=== PATIENT | male | born 1940 | race Caucasian/White ===

== ENCOUNTER 2020-06-18 10:18 | Outpatient (REF) | payer MEDICARE, SELFPAY | END 2020-06-18 10:19 | disposition home or self-care (01) | LOC: HO.WFDLDS 10:18 | PROVIDERS: Visit Provider Internal Medicine | DX: Z20.822 Contact with and (suspected) exposure to COVID-19 (principal) | CPT/HCPCS: 36415; C9803; U0003 ==

== ENCOUNTER 2023-04-25 13:23 | Outpatient (AMB) | payer MEDICARE, SELFPAY ==
--- NOTE | 2023-04-25 13:38 | HO.NEPHOV_ITS ---
HPI HPI Comments History of Present Illness Details Elderly man with history of congestive heart failure and atrial fibrillation with CKD. Baseline creatinine has been around 1.2 mg After initiation of diuretics creatinine seen increased to 1.4 mg/dL and remains unchanged. He has current T on lasix 80 He is waiting for colonoscopy- which might happen in September of 2023. Blood pressure is well controlled and is not on amlodipine at this time. History of atrial fibrillation and is on anticoagulation He has stopped drinking scotch x 2 months Vital Signs 04/25/23 13:39 Height 5 ft 10 in Weight 218 lb BMI 31.3 BP 128/80 Blood Pressure Location Rt brachial Position Sitting Pulse 82 Pulse Source Pulse Oximeter Pulse Oximetry (%) 96 Oxygen Delivery Method Room Air Physical Exam Vital Signs: Last Vital Signs Pulse 82 04/25/23 13:39 BP 128/80 04/25/23 13:39 Pulse Ox 96 04/25/23 13:39 Oxygen Delivery Method Room Air 04/25/23 13:39 BMI result Body Mass Index 31.3 Const General: comfortable Nutritional Appearance: well nourished Orientation/consciousness: patient oriented x3 HEENT Head: No normal to inspection Mouth: moist mucous membranes Neck Neck: Yes supple and Yes no JVD Resp Auscultation: clear to auscultation bilaterally, no rales and rub present Cardio Jugular venous distension: no JVD Palpation: no palpable S3 and no palpable S4 Heart sounds: no rubs GI Palpation (GI): Soft to palpation and nontender Percussion: No Fluid wave present General: Yes no CVA tenderness Back/Spine/Pelvis Back: no CVA tenderness Skin General skin exam: no rashes or lesions noted Neuro General: patient oriented x3 Extrem General: Yes no pedal edema and No clubbing Results Reviewed Results Reviewed: This was reviewed. Serum creatinine 1.4. Cardiology note from [facility] was reviewed Assessment & Plan Assessment & Plan (1) CKD (chronic kidney disease): Code(s): N18.9 - Chronic kidney disease, unspecified Plan: Chronic kidney disease in the setting of longstanding hypertension congestive heart failure. There has been a mild bump in serum creatinine from 1.2 up to 1.4 and creatinine has been stable at 1.4 for last few months. This bump may be related to use of diuretics. At this point it is important to keep him euvolemic. Continue with current dose of diuretics. Monitored weights at home. Continue to stay on low-sodium diet. Avoid nephrotoxic agents including NSAIDs. Coding Level of Care Code New Pt Level 3 (29984) Diagnoses CKD (chronic kidney disease) N18.9
[2023-04-25 13:39] VITALS: BP 128/80; PULSE 82; O2SAT 96; BMI 31.3
== END 2023-04-25 13:59 | disposition home or self-care (01) ==
PROVIDERS: PCP Family Medicine; Visit Provider Internal Medicine Hypertension Specialist
DX: I13.0 Hypertensive heart and chronic kidney disease with heart failure and stage 1 through stage 4 chronic kidney disease, or unspecified chronic kidney disease (principal); I50.22 Chronic systolic (congestive) heart failure; N18.30 Chronic kidney disease, stage 3 unspecified; I48.91 Unspecified atrial fibrillation; Z79.01 Long term (current) use of anticoagulants
CPT/HCPCS: 99203; 99213

== ENCOUNTER → 2023-04-25 13:23 | Outpatient (BNVA) | payer MEDICARE, SELFPAY | PROVIDERS: PCP Family Medicine; Visit Provider Internal Medicine Hypertension Specialist | DX: I13.0 Hypertensive heart and chronic kidney disease with heart failure and stage 1 through stage 4 chronic kidney disease, or unspecified chronic kidney disease (principal); I50.9 Heart failure, unspecified; N18.9 Chronic kidney disease, unspecified; I48.91 Unspecified atrial fibrillation; Z79.01 Long term (current) use of anticoagulants; Z79.899 Other long term (current) drug therapy | CPT/HCPCS: 99202 ==

== ENCOUNTER 2023-08-15 11:18 | Outpatient (AMB) | payer MEDICARE, SELFPAY ==
[2023-08-15 11:21] VITALS: BP 118/64; PULSE 86; O2SAT 95; BMI 32.0
--- NOTE | 2023-08-15 11:21 | HO.NEPHOV ---
HPI HPI Comments History of Present Illness Details Elderly man with history of congestive heart failure and atrial fibrillation with CKD. Baseline creatinine has been around 1.2 mg After initiation of diuretics creatinine seen increased to 1.4 mg/dL and remains unchanged. He has current on lasix 80 He is waiting for colonoscopy- which might happen in September of 2023. Blood pressure is well controlled and is not on amlodipine at this time. History of atrial fibrillation and is on anticoagulation He has stopped drinking scotch x few months 08/15/23 Still has dyspnea on exertion No chest pain Still has edema [facility] Social History (Updated 08/15/23 @ 11:23 by Kaleigh Gagnon) Alcohol intake: current Comment: occ Patient Tobacco Use Status: Never used Tobacco Vital Signs 08/15/23 11:21 Height 5 ft 10 in Weight 223 lb BMI 32.0 BP 118/64 Blood Pressure Location Lt brachial Position Sitting Pulse 86 Pulse Source Pulse Oximeter Pulse Oximetry (%) 95 Oxygen Delivery Method Room Air Physical Exam Vital Signs: Last Vital Signs Pulse 86 08/15/23 11:21 BP 118/64 08/15/23 11:21 Pulse Ox 95 08/15/23 11:21 Oxygen Delivery Method Room Air 08/15/23 11:21 BMI result Body Mass Index 32.0 Const General: comfortable Nutritional Appearance: well nourished Orientation/consciousness: patient oriented x3 HEENT Head: No normal to inspection Mouth: moist mucous membranes Neck Neck: Yes supple and Yes no JVD Resp Auscultation: clear to auscultation bilaterally, no rales and rub present Cardio Jugular venous distension: no JVD Palpation: no palpable S3 and no palpable S4 Heart sounds: no rubs GI Palpation (GI): Soft to palpation and nontender Percussion: No Fluid wave present General: Yes no CVA tenderness Back/Spine/Pelvis Back: no CVA tenderness Skin General skin exam: no rashes or lesions noted Neuro General: patient oriented x3 Extrem General: Yes no pedal edema and No clubbing Assessment & Plan Assessment & Plan (1) CKD (chronic kidney disease): Code(s): N18.9 - Chronic kidney disease, unspecified Plan: Chronic kidney disease in the setting of longstanding hypertension congestive heart failure. There has been a mild bump in serum creatinine to 1.6 This bump may be related to use of diuretics. At this point it is important to keep him euvolemic. Continue with current dose of diuretics. Monitored weights at home. Continue to stay on low-sodium diet. Avoid nephrotoxic agents including NSAIDs. Orders: Orders Basic Metabolic Panel 3 Months N18.9 - Chronic kidney disease, unspecified Complete Blood Count Auto Diff 3 Months N18.30 - Chronic kidney disease, stage 3 unspecified, N18.9 - Chronic kidney disease, unspecified Myeloperoxidase Antibody 3 Months N18.9 - Chronic kidney disease, unspecified Neutrophil Cytoplasma Ab 3 Months N18.9 - Chronic kidney disease, unspecified Complement C4 3 Months N18.9 - Chronic kidney disease, unspecified Complement C3 3 Months N18.9 - Chronic kidney disease, unspecified Proteinase 3 PR3 Antibodies 3 Months N18.9 - Chronic kidney disease, unspecified Anti Glomerular Basement Memb 3 Months N18.9 - Chronic kidney disease, unspecified Protein Electrophoresis, Serum 3 Months N18.9 - Chronic kidney disease, unspecified Coding Level of Care Code Est Pt Level 4 (07170) Diagnoses CKD (chronic kidney disease) N18.9 Results Reviewed Results Reviewed: Cr 1.6 Electrolytes are ok Nephrology Results: No Data to Display
== END 2023-08-15 11:52 | disposition home or self-care (01) ==
PROVIDERS: PCP Family Medicine; Visit Provider Internal Medicine Hypertension Specialist
DX: N18.9 Chronic kidney disease, unspecified (principal)
CPT/HCPCS: 99214

== ENCOUNTER → 2023-08-15 11:18 | Outpatient (BNVA) | payer MEDICARE, SELFPAY | PROVIDERS: PCP Family Medicine; Visit Provider Internal Medicine Hypertension Specialist | DX: I13.0 Hypertensive heart and chronic kidney disease with heart failure and stage 1 through stage 4 chronic kidney disease, or unspecified chronic kidney disease (principal); N18.9 Chronic kidney disease, unspecified; I50.9 Heart failure, unspecified | CPT/HCPCS: 99212 ==

== ENCOUNTER 2023-12-12 10:54 | Outpatient (AMB) | payer MEDICARE, SELFPAY ==
--- NOTE | 2023-12-12 10:55 | HO.NEPHOV ---
Vital Signs 12/12/23 10:56 Height 5 ft 10 in Weight 219 lb BMI 31.4 BP 120/72 Blood Pressure Location Lt brachial Position Sitting Pulse 85 Pulse Source Pulse Oximeter Pulse Oximetry (%) 96 Oxygen Delivery Method Room Air Intake Visit Reasons: 4 mon follow up/ Conf Facilities Clerk Required: No Accompanied by: Self / Same As Patient Allergies lactose intolerant Allergy (Uncoded 04/25/23 13:38) Diarrhea Medication List - Last Reconciled 12/12/23 by Vinny Kenney MD acetaminophen (Tylenol Extra Strength) 500 mg PO Q6H PRN atorvastatin 80 mg PO DAILY cholecalciferol (vitamin D3) 125 mcg PO DAILY clopidogrel 75 mg PO DAILY doxylamine succinate 25 mg PO BEDTIME PRN finasteride 5 mg PO DAILY furosemide 40 mg PO BID lorazepam 0.5 mg PO BEDTIME PRN melatonin 5 mg PO PRN metoprolol succinate ER 50 mg PO DAILY omeprazole 40 mg PO DAILY potassium gluconate 595 mg PO DAILY rivaroxaban (Xarelto) 15 mg PO DAILY HPI Comments Details: Elderly man with history of congestive heart failure and atrial fibrillation with CKD. Baseline creatinine has been around 1.2 mg After initiation of diuretics creatinine seen increased to 1.4 mg/dL and remains unchanged. He has current on lasix 80 He is waiting for colonoscopy- which might happen in September of 2023. Blood pressure is well controlled and is not on amlodipine at this time. History of atrial fibrillation and is on anticoagulation He has stopped drinking scotch x few months 08/15/23 Still has dyspnea on exertion No chest pain Still has edema 12/12/23 PFSH Social History Alcohol intake: current Comment: [facility] Patient Tobacco Use Status: Never used Tobacco Physical Exam Vital Signs: Last Vital Signs Pulse 85 12/12/23 10:56 BP 120/72 12/12/23 10:56 Pulse Ox 96 12/12/23 10:56 Oxygen Delivery Method Room Air 12/12/23 10:56 BMI result Body Mass Index 31.4 Const General: comfortable; No acute distress Orientation/consciousness: patient oriented x3 Eyes General: appearance normal, both eyes and all related structures Visual Amezcua: normal visual amezcua by confrontation Neck Neck: Yes supple and Yes no JVD Resp Effort & Inspection: normal respiratory effort and respiratory effort not decreased Auscultation: rhonchi Cardio Palpation: no palpable S3 and no palpable S4 Heart sounds: no rubs GI Inspection: Yes normal to inspection Palpation (GI): Soft to palpation Percussion: Yes normal to percussion Auscultation: normal bowel sounds General: Yes no CVA tenderness Back/Spine/Pelvis Back: no CVA tenderness Skin General skin exam: no petechiae and no purpura Neuro General: patient oriented x3 and no focal motor deficits Extrem General: No clubbing and Yes edema (Trace) Results Reviewed Results Reviewed: eGFR 39 ml/mt Nephrology Results: No Data to Display Assessment & Plan Assessment & Plan (1) CKD (chronic kidney disease): Code(s): N18.9 - Chronic kidney disease, unspecified Category: Medical Plan: Chronic kidney disease in the setting of longstanding hypertension congestive heart failure. There has been a mild bump in serum creatinine to 1.6 This bump may be related to use of diuretics. At this point it is important to keep him euvolemic. Decrease LASIX to 40 mg Q AM and decrease evening dose to QOD for 2 weeks and reassess Repeat Chem 7 in a week Monitored weights at home. Continue to stay on low-sodium diet. Avoid nephrotoxic agents including NSAIDs. Coding Level of Care Code Est Pt Level 3 (12510) Diagnoses CKD (chronic kidney disease) N18.9
[2023-12-12 10:56] VITALS: BP 120/72; PULSE 85; O2SAT 96; BMI 31.4
== END 2023-12-12 11:18 | disposition home or self-care (01) ==
PROVIDERS: PCP Family Medicine; Visit Provider Internal Medicine Hypertension Specialist
DX: N18.9 Chronic kidney disease, unspecified (principal)
CPT/HCPCS: 99213

== ENCOUNTER → 2023-12-12 10:54 | Outpatient (BNVA) | payer MEDICARE, SELFPAY | PROVIDERS: PCP Family Medicine; Visit Provider Internal Medicine Hypertension Specialist | DX: I13.0 Hypertensive heart and chronic kidney disease with heart failure and stage 1 through stage 4 chronic kidney disease, or unspecified chronic kidney disease (principal); N18.9 Chronic kidney disease, unspecified; I50.9 Heart failure, unspecified | CPT/HCPCS: 99212 ==

== ENCOUNTER 2024-01-23 09:09 | Outpatient (AMB) | payer MEDICARE, SELFPAY ==
[2024-01-23 09:13] VITALS: BP 110/64; PULSE 61; O2SAT 97; BMI 33.0
--- NOTE | 2024-01-23 09:13 | HO.NEPHOV ---
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 Accompanied by: Self / Same As Patient Allergies lactose intolerant Allergy (Uncoded 04/25/23 13:38) Diarrhea Medication List - Last Reconciled 01/23/24 by Vinny Kenney MD acetaminophen (Tylenol Extra Strength) 500 mg PO Q6H PRN atorvastatin 80 mg PO DAILY cholecalciferol (vitamin D3) 125 mcg PO DAILY clopidogrel 75 mg PO DAILY doxylamine succinate 25 mg PO BEDTIME PRN finasteride 5 mg PO DAILY furosemide 40 mg PO BID lorazepam 0.5 mg PO BEDTIME PRN melatonin 5 mg PO PRN metoprolol succinate ER 50 mg PO DAILY omeprazole 40 mg PO DAILY potassium gluconate 595 mg PO DAILY rivaroxaban (Xarelto) 15 mg PO DAILY HPI Comments Details: Elderly man with history of congestive heart failure and atrial fibrillation with CKD. Baseline creatinine has been around 1.2 mg After initiation of diuretics creatinine seen increased to 1.4 mg/dL and remains unchanged. He has current on lasix 80 He is waiting for colonoscopy- which might happen in September of 2023. Blood pressure is well controlled and is not on amlodipine at this time. History of atrial fibrillation and is on anticoagulation He has stopped drinking scotch x few months 08/15/23 Still has dyspnea on exertion No chest pain Still has edema 01/23/24 NO change in Cr after lowering LAsix Weight is up Says he eats more than usual since is is sick No change in reps status [facility] Social History Alcohol intake: current Comment: occ Patient Tobacco Use Status: Never used Tobacco Physical Exam Vital Signs: Last Vital Signs Pulse 61 01/23/24 09:13 BP 110/64 01/23/24 09:13 Pulse Ox 97 01/23/24 09:13 Oxygen Delivery Method Room Air 01/23/24 09:13 BMI result Body Mass Index 33.0 Const General: comfortable; No acute distress Orientation/consciousness: patient oriented x3 Eyes General: appearance normal, both eyes and all related structures Visual Amezcua: normal visual amezcua by confrontation Neck Neck: Yes supple and Yes no JVD Resp Effort & Inspection: normal respiratory effort and respiratory effort not decreased Auscultation: rhonchi Cardio Palpation: no palpable S3 and no palpable S4 Heart sounds: no rubs GI Inspection: Yes normal to inspection Palpation (GI): Soft to palpation Percussion: Yes normal to percussion Auscultation: normal bowel sounds General: Yes no CVA tenderness Back/Spine/Pelvis Back: no CVA tenderness Skin General skin exam: no petechiae and no purpura Neuro General: patient oriented x3 and no focal motor deficits Extrem General: No clubbing and Yes edema (Trace) Results Reviewed Results Reviewed: Cr 1.75v on 01/17/24 Nephrology Results: No Data to Display Assessment & Plan Assessment & Plan (1) CKD (chronic kidney disease): Code(s): N18.9 - Chronic kidney disease, unspecified Category: Medical Plan: Chronic kidney disease in the setting of longstanding hypertension congestive heart failure. There has been a mild bump in serum creatinine to 1.6 This bump may be related to use of diuretics. At this point it is important to keep him euvolemic. Needs to complete serological work up Resume LASIX 40 mg BID Monitored weights at home. Continue to stay on low-sodium diet. Avoid nephrotoxic agents including NSAIDs. Hematuria Follow s with Urology CT scan unremarkable Had CT with IV contrast Check Creatinine post contrast Coding Level of Care Code Est Pt Level 3 (84916) Diagnoses CKD (chronic kidney disease) N18.9
== END 2024-01-23 09:43 | disposition home or self-care (01) ==
PROVIDERS: PCP Family Medicine; Visit Provider Internal Medicine Hypertension Specialist
DX: N18.9 Chronic kidney disease, unspecified (principal)
CPT/HCPCS: 99213

== ENCOUNTER → 2024-01-23 09:09 | Outpatient (BNVA) | payer MEDICARE, SELFPAY | PROVIDERS: PCP Family Medicine; Visit Provider Internal Medicine Hypertension Specialist | DX: N18.9 Chronic kidney disease, unspecified (principal) ==

== ENCOUNTER 2024-04-23 10:12 | Outpatient (AMB) | payer MEDICARE, SELFPAY ==
[2024-04-23 10:18] VITALS: BP 120/76; PULSE 89; O2SAT 96; BMI 32.3
--- NOTE | 2024-04-23 10:18 | HO.NEPHOV_ITS ---
Vital Signs 04/23/24 10:18 Height 5 ft 10 in Weight 225 lb BMI 32.3 BP 120/76 Blood Pressure Location Lt brachial Position Sitting Pulse 89 Pulse Source Pulse Oximeter Pulse Oximetry (%) 96 Oxygen Delivery Method Room Air Intake Visit Reasons: 3 mon follow up/ Conf Desktop Support Manager Required: No Accompanied by: Self / Same As Patient Allergies lactose intolerant Allergy (Uncoded 04/25/23 13:38) Diarrhea Medication List - Last Reconciled 04/23/24 by Vinny Kenney MD acetaminophen (Tylenol Extra Strength) 500 mg PO Q6H PRN atorvastatin 80 mg PO DAILY cholecalciferol (vitamin D3) 125 mcg PO DAILY clopidogrel 75 mg PO DAILY doxylamine succinate 25 mg PO BEDTIME PRN finasteride 5 mg PO DAILY furosemide 40 mg PO BID lorazepam 0.5 mg PO BEDTIME PRN melatonin 5 mg PO PRN metoprolol succinate ER 50 mg PO DAILY omeprazole 40 mg PO DAILY potassium gluconate 595 mg PO DAILY rivaroxaban (Xarelto) 15 mg PO DAILY HPI Comments Details: Elderly man with history of congestive heart failure and atrial fibrillation with CKD. Baseline creatinine has been around 1.2 mg After initiation of diuretics creatinine seen increased to 1.4 mg/dL and remains unchanged. He has current on lasix 80 He is waiting for colonoscopy- which might happen in September of 2023. Blood pressure is well controlled and is not on amlodipine at this time. History of atrial fibrillation and is on anticoagulation He has stopped drinking scotch x few months 08/15/23 Still has dyspnea on exertion No chest pain Still has edema 01/23/24 No change in Cr after lowering Lasix Weight is up Says he eats more than usual since is is sick No change in reps status 04/23/24 c/o DRy cough NO dypnea PFSH Social History Alcohol intake: current Comment: occ Patient Tobacco Use Status: Never used Tobacco Physical Exam Vital Signs: Last Vital Signs Pulse 89 04/23/24 10:18 BP 120/76 04/23/24 10:18 Pulse Ox 96 04/23/24 10:18 Oxygen Delivery Method Room Air 04/23/24 10:18 BMI result Body Mass Index 32.3 Results Reviewed Results Reviewed: Cr 1.75 as of Apr 03, 2024 Nephrology Results: No Data to Display Assessment & Plan Assessment & Plan (1) CKD (chronic kidney disease): Code(s): N18.9 - Chronic kidney disease, unspecified Category: Medical Plan: Chronic kidney disease in the setting of longstanding hypertension congestive heart failure. There has been a mild bump in serum creatinine to 1.6 and currently at 1.75 This bump may be related to use of diuretics. At this point it is important to keep him euvolemic. Serologies reordered Keep LASIX 40 mg BID Added Farxiga 5 mg daily ( 04/23/24) Monitored weights at home. Continue to stay on low-sodium diet. Avoid nephrotoxic agents including NSAIDs. Hematuria Follow with Urology CT scan unremarkable Orders: Orders Basic Metabolic Panel Today N18.9 - Chronic kidney disease, unspecified Basic Metabolic Panel 1 Month N18.9 - Chronic kidney disease, unspecified Proteinase 3 PR3 Antibodies 1 Month N18.9 - Chronic kidney disease, unspecified Anti Glomerular Basement Memb 1 Month N18.9 - Chronic kidney disease, unspecif ied Neutrophil Cytoplasma Ab 1 Month N18.9 - Chronic kidney disease, unspecified Myeloperoxidase Antibody 1 Month N18.9 - Chronic kidney disease, unspecified Complement C3 1 Month N18.9 - Chronic kidney disease, unspecified Complement C4 1 Month N18.9 - Chronic kidney disease, unspecified Medications: New dapagliflozin propanediol (Farxiga) 5 mg PO DAILY 90 tabs 0RF Coding Level of Care Code Est Pt Level 4 (96280) Diagnoses CKD (chronic kidney disease) N18.9
== END 2024-04-23 10:40 | disposition home or self-care (01) ==
PROVIDERS: PCP Family Medicine; Visit Provider Internal Medicine Hypertension Specialist
DX: N18.9 Chronic kidney disease, unspecified (principal)
CPT/HCPCS: 99214

== ENCOUNTER 2024-07-30 10:22 | Outpatient (AMB) | payer MEDICARE, SELFPAY ==
[2024-07-30 10:24] VITALS: BP 104/60; PULSE 76; O2SAT 95; BMI 32.6
--- NOTE | 2024-07-30 10:24 | HO.NEPHOV_ITS ---
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 Accompanied by: Self / Same As Patient Allergies lactose intolerant Allergy (Uncoded 04/25/23 13:38) Diarrhea Medication List - Last Reconciled 07/30/24 by Vinny Kenney MD acetaminophen (Tylenol Extra Strength) 500 mg PO Q6H PRN atorvastatin 80 mg PO DAILY cholecalciferol (vitamin D3) 125 mcg PO DAILY clopidogrel 75 mg PO DAILY dapagliflozin propanediol (Farxiga) 5 mg PO DAILY doxylamine succinate 25 mg PO BEDTIME PRN finasteride 5 mg PO DAILY furosemide 40 mg PO BID lorazepam 0.5 mg PO BEDTIME PRN melatonin 5 mg PO PRN metoprolol succinate ER 50 mg PO DAILY omeprazole 40 mg PO DAILY potassium gluconate 595 mg PO DAILY rivaroxaban (Xarelto) 15 mg PO DAILY HPI Comments Details: Elderly man with history of congestive heart failure and atrial fibrillation with CKD. Baseline creatinine has been around 1.2 mg After initiation of diuretics creatinine seen increased to 1.4 mg/dL and remains unchanged. He has current on lasix 80 He is waiting for colonoscopy- which might happen in September of 2023. Blood pressure is well controlled and is not on amlodipine at this time. History of atrial fibrillation and is on anticoagulation He has stopped drinking scotch x few months 08/15/23;Still has dyspnea on exertion; No chest pain ;Still has edema 01/23/24 ; No change in Cr after lowering Lasix;Weight is up; Says he eats more than usual since is is sick; No change in reps status 04/23/24 ;c/o DRy cough; NO dypnea 07/30/24 s/p Ablation in Jun 2024 Lasted 2 weeks Reverted back after he took some scotch After starting Farxiga, he lost about 7 lbs No change in resp status Edema unchanged Cough has resolved PFSH Surgical History (Updated 07/30/24 @ 10:31 by ELIDA Dave) Status post catheter ablation of slow pathway (~06/2024) Social History Alcohol intake: current Comment: occ Patient Tobacco Use Status: Never used Tobacco Physical Exam Vital Signs: Last Vital Signs Pulse 76 07/30/24 10:24 BP 104/60 07/30/24 10:24 Pulse Ox 95 07/30/24 10:24 Oxygen Delivery Method Room Air 07/30/24 10:24 BMI result Body Mass Index 32.6 Const General: comfortable; No acute distress Orientation/consciousness: patient oriented x3 Eyes General: appearance normal, both eyes and all related structures Visual Amezcua: normal visual amezcua by confrontation Neck Neck: Yes supple and Yes no JVD Resp Effort & Inspection: normal respiratory effort and respiratory effort not decreased Auscultation: rhonchi Cardio Palpation: no palpable S3 and no palpable S4 Heart sounds: no rubs GI Inspection: Yes normal to inspection Palpation (GI): Soft to palpation Percussion: Yes normal to percussion Auscultation: normal bowel sounds General: Yes no CVA tenderness Back/Spine/Pelvis Back: no CVA tenderness Skin General skin exam: no petechiae and no purpura Neuro General: patient oriented x3 and no focal motor deficits Extrem General: No clubbing and Yes edema (Trace) Results Reviewed Results Reviewed: Cr 1.75 as of Mar : 2.06 Jul 2024 : 2.03 Nephrology Results: No Data to Display Assessment & Plan Assessment & Plan (1) CKD (chronic kidney disease): Code(s): N18.9 - Chronic kidney disease, unspecified Category: Medical Plan: Chronic kidney disease in the setting of longstanding hypertension congestive heart failure. bump in serum creatinine to 1.6 and currently at 1.75 Cr up to 2.03 Natural progression vs hypoperfusion in a setting of A.fib This bump may be related to use of diuretics. At this point it is important to keep him euvolemic. Serologies reordered Change LASIX 40 mg QAM and use Lasix 40 mg POevery other evening Added Farxiga 5 mg daily ( 04/23/24) Monitored weights at home. Continue to stay on low-sodium diet. Avoid nephrotoxic agents including NSAIDs. Hematuria Follow with Urology CT scan unremarkable Orders: Orders Basic Metabolic Panel 3 Months N18.9 - Chronic kidney disease, unspecified Complete Blood Count no Diff 3 Months N18.9 - Chronic kidney disease, unspecified Medications: Refilled dapagliflozin propanediol (Farxiga) 5 mg PO DAILY 90 tabs 3RF dapagliflozin propanediol (Farxiga) 5 mg PO DAILY 90 tabs 3RF Coding Level of Care Code Est Pt Level 4 (01221) Diagnoses CKD (chronic kidney disease) N18.9
--- OUTSIDE RECORDS SUMMARY | 2024-07-30 12:40 | XMS_ITS | Clinical Summary ---
Author Organization [facility] Address [address] [place] [address] Care Team Providers Care Property Insurance Inspector Name Role Phone Sonido Meadows MD Primary Care Provider [phone] Allergies No known active allergies Medications Medication Sig Dispensed Refills Start Date End Date Status amLODIPine (NORVASC) tablet 5 mg Take 5 mg by mouth daily. 0 11/01/2018 Active amoxicillin (AMOXIL) 500 MG capsule Take 500 mg by mouth 3 (three) times a day. 0 12/10/2018 Active finasteride (PROSCAR) 5 MG tablet Take 5 mg by mouth daily. 0 11/15/2018 Active hydroCHLOROthiazide (HYDRODIURIL) tablet 25 mg Take 25 mg by mouth daily. 0 11/01/2018 Active metoprolol succinate (TOPROL-XL) 24 hr tablet 50 mg Take 50 mg by mouth daily. 0 11/01/2018 Active XARELTO 20 MG TABS tablet 20 mg every evening. 0 11/15/2018 Active ipratropium (ATROVENT) 0.03 % nasal spray USE 2 SPRAY(S) IN EACH NOSTRIL THREE TIMES DAILY DIRECTED 11 01/27/2019 Active DOXYLAMINE SUCCINATE TANNATE PO Take 25 mg by mouth every night at bedtime as needed. 0 Active cholecalciferol (VITAMIN D3) 1000 units tablet Take 1,000 Units by mouth daily. 0 Active Potassium Gluconate 595 MG CAPS Take 1 tablet by mouth as needed. 0 Active lovastatin (MEVACOR) 40 MG tablet Take 40 mg by mouth every night at bedtime. 0 Active Melatonin 5 MG TABS Take 1 tablet by mouth every night at bedtime. 0 Active omeprazole (PriLOSEC) 40 MG capsule Take 40 mg by mouth daily. 0 Active Social History Tobacco Use Types Packs/Day Years Used Date Smoking Tobacco: Never Smokeless Tobacco: Never Alcohol Use Standard Drinks/Week Comments Yes 0 (1 standard drink = 0.6 oz pur e alcohol) Sunday night Sex and Gender Information Value Date Recorded Sex Assigned at Male 07/04/2018 8:51 AM EST Gender Identity Not on file Sexual Orientation Not on file Last Filed Vital Signs Vital Sign Reading Time Taken Comments Blood Pressure 116/72 02/12/2019 1:30 PM EDT Pulse 58 02/12/2019 1:30 PM EDT Temperature 36.9 ??C (98.5 ??F) 02/12/2019 12:50 PM E DT Respiratory Rate 15 02/12/2019 1:30 PM EDT Oxygen Saturation 95% 02/12/2019 1:30 PM EDT Inhaled Oxygen Concentration - - Weight 98.4 kg (217 lb) 02/12/2019 10:09 AM EDT Height 177.8 cm (5' 10 ) 02/12/2019 10:09 AM EDT Body Mass Index 31.14 02/12/2019 10:09 AM EDT Plan of Treatment Health Maintenance Due Date Last Done Comments COVID-19 Vaccine (#1) 1940 Depression Screening 1952 BMI Counseling 1958 Preventative Health Evaluation 1958 DTap / Tdap / Td (1 - Tdap) 1959 Shingrix-Zoster Vaccine (1 of 2) 1990 Fall Risk Assessment 2005 Pneumococcal Vaccine (1 of 1 - PCV) 2005 RSV Adult > 60+ Yrs or Pregn ant (1 - 1-dose 75+ series) 2015 Influenza Vaccine (#1) 2024 Hepatitis B Vaccines Aged Out No long er eligible based on patient's age to complete this topic RSV Ped < 20 months Aged Out No longe r eligible based on patient's age to complete this topic Advance Directives For more information, please contact: [phone] Documents on File Type Date Recorded Patient Industrial Accountant Expl anation Advance Directive and Living Will 02/06/2019 4:12 PM POA WITH Care Teams Property Insurance Inspector Relationship Specialty Start Date End Date Sonido Meadows MD PCP - General Family Medicine 08/27/14
--- OUTSIDE RECORDS SUMMARY | 2024-07-30 12:40 | XMS_ITS | Clinical Summary ---
Author Organization [facility] Address [address] [place] [address] Phone Care Team Providers Care Cuprous Chloride Helper Name Role Phone Sonido Meadows DO Primary Care Provider [phone] Allergies No known active allergies Medications DOXYLAMINE SUCCINATE TANNATE PO Take 25 mg by mouth 1 (one) time each day Active cholecalciferol (VITAMIN D-3 SUPER STRENGTH) 50 MCG (2000 UT) tablet Take 1,000 Units by mouth 1 (one) time each day Active finasteride (PROSCAR) 5 MG tablet Take 1 tablet by mouth 1 (one) time each day Active Melatonin 5 MG tablet Take 1 tablet by mouth 1 (one) time each day Active metoprolol succinate XL (TOPROL XL) 50 MG 24 hr tablet Take 50 mg by mouth 1 (one) time each day 9 Active omeprazole (PriLOSEC) [address] capsule Take 40 mg by mouth 1 (one) time each day Active Potassium Gluconate 595 MG capsule Take 1 tablet by mouth if needed Active psyllium (METAMUCIL) 0.52 g capsule Take 1 capsule by mouth 2 (two) times a day Active rivaroxaban (XARELTO) 15 MG tablet Take 15 mg by mouth 1 (one) time each day 9 Active fluorouracil (EFUDEX) 5 % cream APPLY TOPICALLY TO SUNDAMAGED AREAS ONE DAY PER WEEK ON SUNDAYS IN THE AM AND IN THE PM FOR 3 MONTHS 1 Active LORazepam (ATIVAN) 0.5 MG tablet Take 0.5 mg by mouth every 6 (six) hours if needed for anxiety Active amLODIPine (NORVASC) 5 MG tablet Take 5 mg by mouth 1 (one) time each day 1 Active furosemide (LASIX) 20 MG tablet Take 1 tablet (20 mg total) by mouth every other day 30 tablet 2 Active Additional Information Patient taking differently: 40 mgOral2 times daily, Reported on 02/28/2023 lactase (LACTAID) 3000 units tablet Take 9,000 Units by mouth if needed Active acetaminophen (TYLENOL) 325 MG tablet Take by mouth every 6 (six) hours if needed for mild pain Active atorvastatin (LIPITOR) 80 MG tablet Take 80 mg by mouth 1 (one) time each day Active clopidogrel (PLAVIX) 75 MG tablet Take 75 mg by mouth 1 (one) time each day Active Imiquimod 2.5 % cream Apply 1 packet topically 3 (three) times a week Wash hands prior to and following application. Active Active Problems Problem Noted Date Diagnosed Date Rib pain 02/28/2023 02/28/2023 Polyp of colon 02/28/2023 02/28/2023 Peripheral edema 02/28/2023 02/28/2023 Malignant tumor of urinary system 02/28/2023 02/28/2023 Long-term current use of anticoagulant 02/28/2023 Patient encounter status 09/07/2021 Impaired fasting glycemia 09/07/2021 History of malignant basal cell neoplasm of skin 09/07/2021 Deep venous thrombosis of lower extremity 2021 Overview (09/07/2021): [id number]-[id number]-Fd. Johnson-hematology Atrial fibrillation 09/07/2021 Overview (09/07/2021): 2017 next 5 years Obese class I 09/07/2021 Chronic kidney disease 12/17/2020 Essential hypertension 12/17/2020 Resolved Problems Problem Noted Date Diagnosed Date Resolved Date Epistaxis 12/17/2020 02/24/2021 Basal cell carcinoma of skin 12/17/2020 02/24/2021 Cognitive disorder 12/17/2020 Disorder of cardiovascular system 12/17/2020 02/24/2021 Gastroesophageal reflux disease 12/17/2020 02/24/2021 History of thromboembolism of vein 12/17/2020 02/24/2021 Hyperlipidemia 12/17/2020 02/24/2021 Obstructive sleep apnea syndrome 12/17/2020 02/24/2021 Hyperplasia of prostate 12/17/2020 09/2 08/2020 Tinnitus 12/17/2020 02/24/2021 Immunizations Name Administration Dates Next Due Influenza Whole 03/17/2020 Influenza, Unspecified 04/12/2021 Pfizer SARS-COV-2 02/28/2021,08/01/2020,07/13/19 21 Social History Tobacco Use Types Packs/Day Years Used Date Smoking Tobacco: Never Smokeless Tobacco: Never Tobacco Cessation:Counseling Given: Not Answered Alcohol Use Standard Drinks/Week Comments Yes 0 (1 standard drink = 0.6 oz pure alcohol) Alcoholic Drinks/day: Occasional social drink Sex and Gender Information Value Date Recorded Sex Assigned at Not on file Legal Sex Male 5:14 PM EST Gender Identity Not on file Sexual Orientation Not on file Last Filed Vital Signs Vital Sign Reading Time Taken Comments Blood Pressure 110/76 02/28/2023 4:10 PM EDT Pulse 80 02/28/2023 4:10 PM EDT Temperature - - Respiratory Rate - - Oxygen Saturation 95% 02/28/2023 4:10 PM EDT Inhaled Oxygen Concentration - - Weight 100 kg (220 lb 12.8 oz) 02/28/2023 4:10 P M EDT Height 177.8 cm (5' 10 ) 02/28/2023 4:10 PM EDT Body Mass Index 31.68 02/28/2023 4:10 PM EDT Plan of Treatment Health Maintenance Due Date Last Done Comments Pneumococcal Vaccine: 65+ Years (1 of 2 - PCV) 1946 Influenza Vaccine (#1) 2024 , 03/17/2020 Hepatitis B Vaccine Aged Out No longe r eligible based on patient's age to complete this topic Insurance * Guarantor: Bret Ronquillo Account Type Relation to Patient Date of Phone Billing Address Personal/Family Self 1940 [address] [place] [address] [facility] Member Subscriber Plan / Payer (Ef fective 2020-Present) Name:Bret Ronquillo Relation to Subscriber:Self Name:Bret Ronquillo Payer ID:[id number] (NAIC) Group ID:Not on file Type:Not on file Address: [address] [place] [id number] MEDICARE [facility] MEDICARE Care Teams Cuprous Chloride Helper Relationship Specialty Start Date End Date Sonido Meadows DO [address] [place] [address] PCP - General Family Medicine 09/07/21
--- OUTSIDE RECORDS SUMMARY | 2024-07-30 12:40 | XMS_ITS | Clinical Summary ---
Author Organization [facility] it Address [address] [place] [address] Care Team Providers Care Front Office Medical Assistant Name Role Phone Sonido Meadows DO Primary Care Provider [phone] Surgical History Surgery Date Site/Laterality Comments TOTAL HIP ARTHROPLASTY Bilateral PROCEDURE:TOTAL HIP ARTHROPLASTY CHOLECYSTECTOMY PROCEDURE:CHOLECYSTECTOMY KNEE SURGERY PROCEDURE:KNEE SURGERY COLECTOMY PROCEDURE:COLECTOMY ARTHROPLASTY 02/12/2019 Right PROCEDURE:ARTHROPLASTY;COMMENT:Proce dure: ARTHROPLASTY INTERCARPAL JOINTS; Surgeon: Ranulfo Cordoba MD; Location: [facility]; Service: Orthopedics; Laterality: Right; TENDON TRANSFER 02/12/2019 Right PROCEDURE:TRANSFER TENDON HAND;COMMENT:Procedure: TRANSFER TENDON HAND; Surgeon: Ranulfo Cordoba MD; Location: [facility]; Service: Orthopedics; Laterality: Right; TRIGGER FINGER RELEASE 02/12/2019 Right PROCEDURE:TRIGGER FINGER RELEASE;COMMENT:Procedure: RELEASE TENDON SHEATH HAND; Surgeon: Ranulfo Cordoba MD; Location: [facility]; Service: Orthopedics; Laterality: Right; Medical History Medical History Date Comments HTN (hypertension) DX:HTN (hyper tension) Atrial fibrillation (CMS/HCC) DX :Atrial fibrillation (HCC) DVT, lower extremity (CMS/HCC) D X:DVT, lower extremity (HCC);COMMENT:left BPH (benign prostatic hyperplasia) DX:BPH (benign prostatic hyperplasia) Chronic kidney disease (CKD) , stage III (moderate) (CMS/HCC) DX:Chronic kidney disease (C KD), stage III (moderate) (HCC) Basal cell carcinoma DX:Basal ce ll carcinoma HLD (hyperlipidemia) DX:HLD (hyp erlipidemia) Impaired fasting glucose DX:Impa ired fasting glucose Tinnitus DX:Tinnitus RIDGE treated with BiPAP DX:RIDGE tr eated with BiPAP Social History Tobacco Use Types Packs/Day Years Used Date Smoking Tobacco: Never Smokeless Tobacco: Never Alcohol Use Standard Drinks/Week Comments Yes 0 (1 standard drink = 0.6 oz pur e alcohol) Sex and Gender Information Value Date Recorded Sex Assigned at Not on file Legal Sex Male 5:48 PM EST Gender Identity Not on file Sexual Orientation Not on file Obstetrics History Plan of Treatment Health Maintenance Due Date Last Done Comments DTaP,Tdap,and Td Vaccines (1 - Tdap) 1959 Pneumococcal Vaccine: 50+ Ye ars (1 of 1 - PCV) 1990 Zoster Vaccines (1 of 2) 1990 RSV Immunization Patients 60 + Years Old (1 - 1-dose 75+ series) 2015 COVID-19 Vaccine (1 - 2023-2 5 season) 2024 Influenza Vaccine (#1) 2024 HIB Vaccines Aged Out No longer eligi ble based on patient's age to complete this topic HPV Vaccines Aged Out No longer eligi ble based on patient's age to complete this topic Hepatitis A Vaccines Aged Out No long er eligible based on patient's age to complete this topic Hepatitis B Vaccines Aged Out No long er eligible based on patient's age to complete this topic IPV Vaccines Aged Out No longer eligi ble based on patient's age to complete this topic MMR Vaccines Aged Out No longer eligi ble based on patient's age to complete this topic Meningococcal ACWY Vaccine Aged Out N o longer eligible based on patient's age to complete this topic Meningococcal B Vacine Aged Out No lo nger eligible based on patient's age to complete this topic RSV Immunization Patients Un nash 20 months Aged Out No longer eligible b ased on patient's age to complete this topic Varicella Vaccines Aged Out No longer eligible based on patient's age to complete this topic Care Teams Front Office Medical Assistant Relationship Specialty Start Date End Date Sonido Meadows DO [address] [place] [address] PCP - General Family Medicine 08/27/14
--- OUTSIDE RECORDS SUMMARY | 2024-07-30 12:40 | XMS_ITS | Clinical Summary ---
Author Organization [facility] Address [address] [place] [address] Care Team Providers Care Planner Name Role Phone Unavailable Primary Care Provider Unavailabl e Social History Tobacco Use Types Packs/Day Years Used Date Smoking Tobacco: Never Assessed Sex and Gender Information Value Date Recorded Sex Assigned at Not on file Gender Identity Not on file Sexual Orientation Not on file Plan of Treatment Health Maintenance Due Date Last Done Comments DTaP/Tdap/Td Vaccines (1 - Tdap) 1959 Pneumococcal Vaccines 50+ (1 of 1 - PCV) 1990 Zoster (Shingles) Vaccine (1 of 2) 1990 RSV Vaccine 60 years and old er and Patients (1 - 1-dose 75+ series) 2015 COVID-19 Vaccine ( - 2023-2 5 season) 2024 Hepatitis B Vaccines Aged Out No long er eligible based on patient's age to complete this topic
== END 2024-07-30 10:51 | disposition home or self-care (01) ==
PROVIDERS: PCP Family Medicine; Visit Provider Internal Medicine Hypertension Specialist
DX: N18.9 Chronic kidney disease, unspecified (principal)
CPT/HCPCS: 99214

== ENCOUNTER → 2024-07-30 10:22 | Outpatient (BNVA) | payer MEDICARE, SELFPAY | PROVIDERS: PCP Family Medicine; Visit Provider Internal Medicine Hypertension Specialist | DX: I13.0 Hypertensive heart and chronic kidney disease with heart failure and stage 1 through stage 4 chronic kidney disease, or unspecified chronic kidney disease (principal); N18.9 Chronic kidney disease, unspecified; I50.9 Heart failure, unspecified; I48.91 Unspecified atrial fibrillation; Z79.01 Long term (current) use of anticoagulants; Z79.899 Other long term (current) drug therapy | CPT/HCPCS: 99212 ==

== ENCOUNTER 2024-12-03 10:28 | Outpatient (AMB) | payer MEDICARE, SELFPAY ==
[2024-12-03 10:29] VITALS: BP 128/70; PULSE 68; O2SAT 96; BMI 31.9
--- NOTE | 2024-12-03 10:29 | HO.NEPHOV ---
Vital Signs 12/03/24 10:29 Height 5 ft 10 in Weight 222 lb BMI 31.9 BP 128/70 Blood Pressure Location Lt brachial Position Sitting Pulse 68 Pulse Source Pulse Oximeter Pulse Oximetry (%) 96 Oxygen Delivery Method Room Air Intake Visit Reasons: 4m follow up-# not in service Business Liaison Officer Required: No Accompanied by: Self / Same As Patient Allergies lactose intolerant Allergy (Uncoded 04/25/23 13:38) Diarrhea Medication List - Last Reconciled 12/03/24 by Vinny Kenney MD acetaminophen (Tylenol Extra Strength) 500 mg PO Q6H PRN amiodarone 200 mg PO DAILY cholecalciferol (vitamin D3) 125 mcg PO DAILY dapagliflozin propanediol (Farxiga) 5 mg PO DAILY doxylamine succinate 25 mg PO BEDTIME PRN finasteride 5 mg PO DAILY furosemide 20 mg PO DAILY melatonin 5 mg PO PRN omeprazole 40 mg PO DAILY potassium gluconate 595 mg PO DAILY rivaroxaban (Xarelto) 15 mg PO DAILY rosuvastatin 40 mg PO DAILY HPI Comments Details: Elderly man with history of congestive heart failure and atrial fibrillation with CKD. Baseline creatinine has been around 1.2 mg After initiation of diuretics creatinine seen increased to 1.4 mg/dL and remains unchanged. He has current on lasix 80 He is waiting for colonoscopy- which might happen in September of 2023. Blood pressure is well controlled and is not on amlodipine at this time. History of atrial fibrillation and is on anticoagulation He has stopped drinking scotch x few months 08/15/23;Still has dyspnea on exertion; No chest pain ;Still has edema 01/23/24 ; No change in Cr after lowering Lasix;Weight is up; Says he eats more than usual since is is sick; No change in reps status 04/23/24 ;c/o DRy cough; NO dypnea 07/30/24 s/p Ablation in Jun 2024 ;Lasted 2 weeks ;Reverted back after he took some scotch After starting Farxiga, he lost about 7 lbs No change in resp status Edema unchanged Cough has resolved 12/03/24 Recently had cardioversion Feels better Lasix has been decreased Cr is better [facility] Surgical History Status post catheter ablation of slow pathway (~06/2024) Social History Alcohol intake: current Comment: occ Patient Tobacco Use Status: Never used Tobacco Physical Exam Vital Signs: BMI result Body Mass Index 31.9 Const General: comfortable; No acute distress Orientation/consciousness: patient oriented x3 Eyes General: appearance normal, both eyes and all related structures Visual Amezcua: normal visual amezcua by confrontation Neck Neck: Yes supple and Yes no JVD Resp Effort & Inspection: normal respiratory effort and respiratory effort not decreased Auscultation: rhonchi Cardio Palpation: no palpable S3 and no palpable S4 Heart sounds: no rubs GI Inspection: Yes normal to inspection Palpation (GI): Soft to palpation Percussion: Yes normal to percussion Auscultation: normal bowel sounds General: Yes no CVA tenderness Back/Spine/Pelvis Back: no CVA tenderness Skin General skin exam: no petechiae and no purpura Neuro General: patient oriented x3 and no focal motor deficits Extrem General: No clubbing and Yes edema (Trace) Results Reviewed Results Reviewed: Cr 1.75 as of Mar : 2.06 Jul 2024 : 2.03 Evita : 1.81 ;eGFR 36 ml HgB 12.8 Assessment & Plan Assessment & Plan (1) CKD (chronic kidney disease): Code(s): N18.9 - Chronic kidney disease, unspecified Category: Medical Plan: Chronic kidney disease in the setting of longstanding hypertension congestive heart failure. bump in serum creatinine to 1.6 and currently at 1.75 Cr up to 2.03 - hypoperfusion in a setting of A.fib Cr down to 1.8 after cardioversion and lowering Lasix to 20 mg QD Should avoid NSAIDS This bump may be related to use of diuretics. At this point it is important to keep him euvolemic. Serologies reordered Keep Lasix at 20 mg daily Added Farxiga 5 mg daily ( 04/23/24) Monitored weights at home. Continue to stay on low-sodium diet. Avoid nephrotoxic agents including NSAIDs. Hematuria Follow with Urology CT scan unremarkable Orders: Orders Basic Metabolic Panel 3 Months N18.9 - Chronic kidney disease, unspecified Complete Blood Count no Diff 3 Months N18.9 - Chronic kidney disease, unspecified Coding Level of Care Code Est Pt Level 4 (28433) Diagnoses CKD (chronic kidney disease) N18.9
--- OUTSIDE RECORDS SUMMARY | 2024-12-03 11:02 | XMS_ITS | Clinical Summary ---
Author Organization [employer] [facility] Address [address] [place] [address] Care Team Providers Care Reclamation Engineer Name Role Phone Sonido Meadows MD Primary Care Provider [phone] Allergies No known active allergies Medications Medication [...] 58 02/12/2019 1:30 PM EDT Temperature 36.9 C (98.5 F) 02/12/2019 12:50 PM EDT Respiratory Rate 15 02/12/2019 1:30 PM EDT [...] - 1-dose 75+ series) 2015 Influenza Vaccine (Season Ended) 2025 Hepatitis B Vaccines Aged Out No long er eligible based on patient's age to complete this topic RSV Ped < 20 months Aged Out No longe r eligible based on patient's age to complete this topic Advance Directives For more information, please contact: [phone] Documents on File Type Date Recorded Patient Outsewer Expl anation Advance Directive and Living Will 02/06/2019 4:12 PM POA WITH Care Teams Reclamation Engineer Relationship Specialty Start Date End Date Sonido Meadows MD PCP - General Family Medicine 08/27/14
--- OUTSIDE RECORDS SUMMARY | 2024-12-03 11:02 | XMS_ITS | Clinical Summary ---
Author Organization [facility] Address [address] [place] [address] Phone Care Team Providers Care Tobacco Baler Name Role Phone Sonido Meadows DO Primary Care Provider Allergies No known active allergies Medications DOXYLAMINE [...] thrombosis of lower extremity 2021 Overview (09/07/2021): lixwnjcrm-euqbzrfeig-Sm. Johnson-hematology Atrial fibrillation 09/07/2021 Overview (09/07/2021): 2017 [...] 12/17/2020 09/2 08/2020 Tinnitus 12/17/2020 02/24/2021 Immunizations Immunization Administration Dates Next Due Influenza Whole 03/17/2020 [...] Due Date Last Done Comments Pneumococcal Vaccine: 50+ Years (1 of 2 - PCV) 1959 Influenza Vaccine (Season Ended) 2025 04/12/2021, 03/17/2020 Hepatitis B Vaccine Aged Out No longe r eligible based on patient's age to complete this topic Insurance [address] [place] [address] [facility] Member Subscriber Plan / Payer (Ef fective 2020-Present) Name:Bret Ronquillo Relation to Subscriber:Self Name:Bret Ronquillo Payer ID:[id number] (NAIC) Group ID:Not on file Type:Not on file Address: [address] [place] [id number] Medicare [facility] Medicare Care Teams Tobacco Baler Relationship Specialty Start Date End Date Sonido Meadows DO [address] [place] [address] PCP - General Family Medicine 09/07/21
--- OUTSIDE RECORDS SUMMARY | 2024-12-03 11:02 | XMS_ITS | Encounter Summary ---
Author Organization [facility] Address [address] [place] [address] Care Team Providers Care Indirect Sales Representative Name Role Phone Sonido Meadows DO Primary Care Provider [phone] Encounter Details Date Type Department Care Team (Late st Contact Info) Description 11/14/2024 Lab Requisition [facility] - Main Lab [address] [facility] [place] [address] Pablo Chaudhry MD [address] [place] [address] Other abnormal findings on cytological and histological examination of urine Social History Tobacco Use Types Packs/Day Years Used Date Smoking Tobacco: Never Smokeless Tobacco: Never Alcohol Use Standard Drinks/Week Comments Yes 0 (1 standard drink = 0.6 oz pur e alcohol) Sex and Gender Information Value Date Recorded Sex Assigned at Not on file Legal Sex Male 5:48 PM EST Gender Identity Not on file Sexual Orientation Not on file documented as of this encounter Plan of Treatment Not on file documented as of this encounter Procedures Procedure Name Priority Date/Time Associated Diagnosis Comments AP OUTSIDE CONSULT Routine 11/10/2024 12 :00 AM EDT Other abnormal findings on cytological and histological examination of urine documented in this encounter Results * Anatomic pathology outside consult (11/10/2024 12:00 AM EDT) Final Diagnosis Urine, Voided, ([id number]): ATYPICAL UROTHELIAL CELLS, SUSPICIOUS FOR HIGH GRADE UROTHELIAL CARCINOMA Results of [employer] fluorescence in situ hybridization (FISH) testing: CEP3: Abnormal CEP7: Abnormal CEP17: Abnormal LSI 9p21: Normal Interpretation: Abnormal profile Controls stained appropriately. Note: Abnormal results are considered suspicious for urothelial carcinoma. 11/27/2024 11:47 AM EDT [facility] Clinical Information Other abnormal findings on cytology and histology exam of urine R82.89 Urine Cytology/FISH (now) 11/27/2024 11:47 AM EDT [facility] Gross Description A. Urine, Voided, ([id number]): Received one ThinPrep slide for cytology and one ThinPrep slide for U[employer] FISH 11/27/2024 11:47 AM EDT [facility] Disclaimer Unless otherwise specified, all tissue is 10% NB formalin fixed and paraffin embedded. Technical pathology services provided by [facility] at [address] [facility] [address], [place] [address] (CLIA #[id number]/Lindsay Dyer MD, Dining Room Hostess) 11/27/2024 11:47 AM EDT [facility] Tissue Urine specimen from urethra / Unknown 11/10/2024 11/14/2024 3:59 PM EDT us Pablo Chaudhry MD LAB PATHOLOGY ORDERABLES Final Result [facility] [address] [place] [address], documented in this encounter Visit Diagnoses Diagnosis Other abnormal findings on cytological and histological examination of urine documented in this encounter Care Teams Indirect Sales Representative Relationship Specialty Start Date End Date Sonido Meadows DO [address] [place] [address] PCP - General Family Medicine 08/27/14 documented as of this encounter
--- OUTSIDE RECORDS SUMMARY | 2024-12-03 11:03 | XMS_ITS | Clinical Summary ---
Author Organization [facility] Address [address] [place] [address] Care Team Providers Care Film Librarian Name Role Phone Unavailable Primary Care Provider Unavailabl e Social History Tobacco Use Types Packs/Day Years Used Date Smoking Tobacco: Never Assessed Sex and Gender Information Value Date Recorded Sex Assigned at Not on file Legal Sex Male 4:11 PM EDT Gender Identity Not on file Sexual Orientation [...]
== END 2024-12-03 10:47 | disposition home or self-care (01) ==
PROVIDERS: PCP Family Medicine; Visit Provider Internal Medicine Hypertension Specialist
DX: N18.9 Chronic kidney disease, unspecified (principal)
CPT/HCPCS: 99214

== ENCOUNTER → 2024-12-03 10:28 | Outpatient (BNVA) | payer MEDICARE, SELFPAY | PROVIDERS: PCP Family Medicine; Visit Provider Internal Medicine Hypertension Specialist | DX: I13.0 Hypertensive heart and chronic kidney disease with heart failure and stage 1 through stage 4 chronic kidney disease, or unspecified chronic kidney disease (principal); N18.9 Chronic kidney disease, unspecified; I50.9 Heart failure, unspecified; Z79.899 Other long term (current) drug therapy | CPT/HCPCS: 99212 ==

== ENCOUNTER 2025-04-01 10:13 | Outpatient (AMB) | payer MEDICARE, SELFPAY ==
[2025-04-01 10:18] VITALS: BP 138/82; PULSE 74; O2SAT 98; BMI 30.8
--- NOTE | 2025-04-01 10:18 | HO.NEPHOV ---
Vital Signs 04/01/25 10:18 Height 5 ft 10 in Weight 215 lb BMI 30.8 BP 138/82 Blood Pressure Location Lt brachial Position Sitting Pulse 74 Pulse Source Pulse Oximeter Pulse Oximetry (%) 98 Oxygen Delivery Method Room Air Intake Visit Reasons: 3mon follow-up w/labs Craft Recruiter Required: No Accompanied by: Self / Same As Patient Allergies lactose intolerant Allergy (Uncoded 04/25/23 13:38) Diarrhea Medication List - Last Reconciled 04/01/25 by Vinny Kenney MD acetaminophen (Tylenol Extra Strength) 500 mg PO Q6H PRN amiodarone 200 mg PO DAILY cholecalciferol (vitamin D3) 125 mcg PO DAILY dapagliflozin propanediol (Farxiga) 5 mg PO DAILY doxylamine succinate 25 mg PO BEDTIME PRN finasteride 5 mg PO DAILY furosemide 20 mg PO DAILY melatonin 5 mg PO PRN omeprazole 40 mg PO DAILY rivaroxaban (Xarelto) 15 mg PO DAILY rosuvastatin 40 mg PO DAILY HPI Comments Details: Elderly man with history of congestive heart failure and atrial fibrillation with CKD. Baseline creatinine has been around 1.2 mg After initiation of diuretics creatinine seen increased to 1.4 mg/dL and remains unchanged. He has current on lasix 80 He is waiting for colonoscopy- which might happen in September of 2023. Blood pressure is well controlled and is not on amlodipine at this time. History of atrial fibrillation and is on anticoagulation He has stopped drinking scotch x few months 08/15/23;Still has dyspnea on exertion; No chest pain ;Still has edema 01/23/24 ; No change in Cr after lowering Lasix;Weight is up; Says he eats more than usual since is is sick; No change in reps status 04/23/24 ;c/o DRy cough; NO dypnea 07/30/24 s/p Ablation in Jun 2024 ;Lasted 2 weeks ;Reverted back after he took some scotch After starting Farxiga, he lost about 7 lbs No change in resp status Edema unchanged Cough has resolved 12/03/24 ;Recently had cardioversion ;Feels better ; Lasix has been decreased ;Cr is better 04/01/25 - The patient is an 85-year-old male presenting with skin deterioration and balance issues. - Skin deterioration: Reports skin falling apart and hanging down. - Hypertension: Blood pressure increased to 138/82 mmHg from 118/82 mmHg. - COVID-19 infection: Had COVID-19 in February, lost 7 pounds, prolonged cough. - Balance issues: Difficulty with balance, bruising from bumping into door frames. - Chronic kidney disease: Creatinine stable at 1.75 mg/dL, GFR stable. [facility] Surgical History Status post catheter ablation of slow pathway (~06/2024) Social History Alcohol intake: current Comment: occ Patient Tobacco Use Status: Never used Tobacco Physical Exam Vital Signs: Last Vital Signs Pulse 74 04/01/25 10:18 BP 138/82 04/01/25 10:18 Pulse Ox 98 04/01/25 10:18 Oxygen Delivery Method Room Air 04/01/25 10:18 BMI result Body Mass Index 30.8 Const General: comfortable; No acute distress Orientation/consciousness: patient oriented x3 Eyes General: appearance normal, both eyes and all related structures Visual Amezcua: normal visual amezcua by confrontation Neck Neck: Yes supple and Yes no JVD Resp Effort & Inspection: normal respiratory effort and respiratory effort not decreased Auscultation: rhonchi Cardio Palpation: no palpable S3 and no palpable S4 Heart sounds: no rubs GI Inspection: Yes normal to inspection Palpation (GI): Soft to palpation Percussion: Yes normal to percussion Auscultation: normal bowel sounds General: Yes no CVA tenderness Back/Spine/Pelvis Back: no CVA tenderness Skin General skin exam: no petechiae and no purpura Neuro General: patient oriented x3 and no focal motor deficits Extrem General: No clubbing and Yes edema (Trace) Results Reviewed Results Reviewed: Cr 1.75 as of Mar : 2.06 Jul 2024 : 2.03 November : 1.81 ;eGFR 36 ml HgB 12.11 Mar 2025 Cr 1.75 Assessment & Plan Assessment & Plan (1) CKD (chronic kidney disease): Code(s): N18.9 - Chronic kidney disease, unspecified Category: Medical Plan: Chronic kidney disease in the setting of longstanding hypertension congestive heart failure. bump in serum creatinine to 1.6 and currently at 1.75 Cr up to 2.03 - hypoperfusion in a setting of A.fib Cr down to 1.8 after cardioversion and lowering Lasix to 20 mg QD Should avoid NSAIDS This bump may be related to use of diuretics. At this point it is important to keep him euvolemic. Serologies reordered Keep Lasix at 20 mg daily Added Farxiga 5 mg daily ( 04/23/24) Monitored weights at home. Continue to stay on low-sodium diet. Avoid nephrotoxic agents including NSAIDs. Hematuria Follow with Urology CT scan unremarkable Orders: Orders Basic Metabolic Panel 4 Months N18.9 - Chronic kidney disease, unspecified Complete Blood Count no Diff 4 Months N18.9 - Chronic kidney disease, unspecified Coding Level of Care Code Est Pt Level 4 (09054) Diagnoses CKD (chronic kidney disease) N18.9
--- OUTSIDE RECORDS SUMMARY | 2025-04-01 12:39 | XMS_ITS | Encounter Summary ---
Author Organization [facility] Address [address] [place] [address] Care Team Providers Care Chief Deputy Sheriff Name Role Phone Sonido Meadows DO Primary Care Provider [phone] Encounter Details Date Type Department Care Team (Late st Contact Info) Description 11/14/2024 Lab Requisition [facility] - Main Lab [address] [facility] [place] [address] Pablo Chaudhry MD [address] [place] [address] Other abnormal findings on cytological [...] 12:00 AM EDT) Final Diagnosis Urine, Voided, ([id number]): ATYPICAL UROTHELIAL CELLS, SUSPICIOUS FOR HIGH GRADE UROTHELIAL CARCINOMA Results of UroVysion fluorescence in situ hybridization (FISH) testing: CEP3: Abnormal CEP7: Abnormal CEP17: Abnormal LSI 9p21: Normal Interpretation: Abnormal profile Controls stained appropriately. Note: Abnormal results are considered suspicious for urothelial carcinoma. 11/27/2024 11:[address] [facility] Clinical Information Other abnormal findings on cytology and histology exam of urine R82.89 Urine Cytology/FISH (now) 11/27/2024 11:[address] [facility] Gross Description A. Urine, Voided, ([id number]): Received one ThinPrep slide for cytology and one ThinPrep slide for UroVysion FISH 11/27/2024 11:[address] [facility] Disclaimer Unless otherwise specified, all tissue is 10% NB formalin fixed and paraffin embedded. Technical pathology services provided by [facility] Urology at [address], [place] [address] (CLIA #[id number]/Lindsay yDer MD, Asphalt Roller Person) 11/27/2024 11:[address] [facility] Tissue Urine specimen from urethra / Unknown 11/10/2024 11/14/2024 3:59 PM EDT us Pablo Chaudhry MD LAB PATHOLOGY ORDERABLES Final Result [facility] [address] [place] [address], documented in this encounter Visit Diagnoses Diagnosis Other abnormal findings on cytological and histological examination of urine documented in this encounter Care Teams Chief Deputy Sheriff Relationship Specialty Start Date End Date Sonido Meadows DO [address] [place] [address] PCP - General Family Medicine 08/27/14 documented as of this encounter
--- OUTSIDE RECORDS SUMMARY | 2025-04-01 12:40 | XMS_ITS | Clinical Summary ---
Author Organization [facility] Address [address] [place] [address] Care Team Providers Care Flag Decorator Name Role Phone Sonido Meadows MD Primary Care Provider [phone] Allergies No known active allergies Medications Medication [...] 1-dose 75+ series) 2015 Influenza Vaccine (#1) 2025 Hepatitis B Vaccines Aged Out No long er eligible based on patient's age to complete this topic RSV Ped < 20 months Aged Out No longe r eligible based on patient's age to complete this topic Advance Directives For more information, please contact: [phone] Documents on File Type Date Recorded 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
--- OUTSIDE RECORDS SUMMARY | 2025-04-01 12:40 | XMS_ITS | Clinical Summary ---
Author Organization [facility] Address [address] [place] [address] Care Team Providers Care Field Observer Name Role Phone Unavailable Primary Care Provider Unavailabl e Social History Tobacco Use Types Packs/Day Years Used Date Smoking Tobacco: Never Assessed Sex and Gender Information Value Date Recorded Sex Assigned at Not on file Legal Sex Male 4:11 PM EDT Gender Identity Not on file Sexual Orientation Not on file Plan of Treatment Health Maintenance Due Date Last Done Comments Advance Care Planning 1940 DTaP/Tdap/Td Vaccines (1 - Tdap) 1959 Pneumococcal Vaccines 50+ (1 of 1 - PCV) 1990 Zoster (Shingles) Vaccine (1 of 2) 1990 RSV Vaccine 50 years and old er and Patients (1 - 1-dose 75+ series) 2015 COVID-19 Vaccine ( - 2023-2 5 season) 2025 Hepatitis B Vaccines Aged Out No long er eligible based on patient's age to complete this topic
--- OUTSIDE RECORDS SUMMARY | 2025-04-01 12:40 | XMS_ITS | Clinical Summary ---
Author Organization [address] [facility] Address [address] [place] [address] Phone Care Team Providers Care Fisher Purse Seine Name Role Phone Sonido Meadows Primary Care Provider [phone] Surgical History Surgery Date Site/Laterality Comments TOTAL HIP ARTHROPLASTY Bilateral PROCEDURE:TOTAL HIP ARTHROPLASTY CHOLECYSTECTOMY PROCEDURE:CHOLECYSTECTOMY KNEE SURGERY PROCEDURE:KNEE SURGERY COLECTOMY PROCEDURE:COLECTOMY ARTHROPLASTY 02/12/2019 Right PROCEDURE:ARTHROPLASTY;COMMENT:Proce dure: ARTHROPLASTY INTERCARPAL JOINTS; Surgeon: Ranulfo Cordoba MD; Location: [facility]; Service: Orthopedics; Laterality: Right; TENDON TRANSFER 02/12/2019 Right PROCEDURE:TRANSFER TENDON HAND;COMMENT:Procedure: TRANSFER TENDON HAND; Surgeon: Ranulfo Cordoba MD; Location: [facility]; Service: Orthopedics; Laterality: Right; TRIGGER FINGER RELEASE 02/12/2019 Right PROCEDURE:TRIGGER FINGER RELEASE;COMMENT:Procedure: RELEASE TENDON SHEATH HAND; Surgeon: Ranulfo Cordoba MD; Location: [facility]; Service: Orthopedics; Laterality: Right; Medical History Medical History Date Comments HTN (hypertension) DX:HTN (hyper tension) Atrial fibrillation (CMS/HCC V24, CMS/HCC V28) DX:Atrial fibrillation (HCC) DVT, lower extremity (CMS/HC C V24, CMS/HCC V28) DX:DVT, lower extremity (HCC);COMMENT:left BPH (benign prostatic hyperplasia) DX:BPH (benign prostatic hyperplasia) Chronic kidney disease (CKD) , stage III (moderate) (CMS/HCC V24, CMS/HCC V28) DX:Chronic kidne y disease (CKD), stage III (moderate) (HCC) Basal cell carcinoma [...] Vaccines (1 of 2) 1990 RSV Immunization Adult Patie nts (1 - 1-dose 75+ series) 2015 Depression Screening 06/04/2024 Cholesterol Screening (Lipid Panel) 11/15/2024 Falls Risk Assessment 11/15/2024 Medicare Annual Wellness Visit 11/15/2024 Social Influencers of Health Screening 11/15/2024 COVID-19 Vaccine ( - 2023-2 5 season) 2025 Influenza Vaccine (#1) 2025 HIB Vaccines Aged Out No longer eligi [...] age to complete this topic Meningococcal B Vaccine Aged Out No l onger eligible based on patient's age to complete this topic RSV Immunization Patients Un nash 20 months Aged Out No longer eligible b ased on patient's age to complete this topic Varicella Vaccines Aged Out No longer eligible based on patient's age to complete this topic Insurance * Guarantor: Bret Luciano Account Type Relation to Patient Date of Phone Billing Address Personal/Family Self 1940 [address] [place] [address] AAR MEDICARE Care Teams Fisher Purse Seine Relationship Specialty Start Date End Date Sonido Meadows DO [address] [place], [place] PCP - General Family Medicine 08/27/14
== END 2025-04-01 10:37 | disposition home or self-care (01) ==
LOC: HO.HKAS 10:14
PROVIDERS: PCP Family Medicine; Visit Provider Internal Medicine Hypertension Specialist
DX: N18.9 Chronic kidney disease, unspecified (principal)
CPT/HCPCS: 99214

== ENCOUNTER → 2025-04-01 10:13 | Outpatient (BNVA) | payer MEDICARE, SELFPAY | PROVIDERS: PCP Family Medicine; Visit Provider Internal Medicine Hypertension Specialist | DX: N18.9 Chronic kidney disease, unspecified (principal) | CPT/HCPCS: 99212 ==